=== PATIENT | female | born 1995 | race Caucasian/White ===

== ENCOUNTER 2024-06-06 06:35 | Emergency (ER) | payer OTHER ==
[2024-06-06 06:40] VITALS: BP 125/78; PULSE 80; TEMP 97.8
--- NOTE | 2024-06-06 06:53 | ED ---
Extremity Problem HPI - General Chief complaint: Extremity Problem,Nontraumatic Stated complaint: Left shoulder pain Time Seen by Provider: 06/06/24 06:42 Source: patient, RN notes reviewed Mode of arrival: ambulatory Limitations: no limitations - History of Present Illness Initial comments: This is a 28-year-old female who presents to the emergency department for left shoulder pain. States that it started a week ago. Denies any injuries. She went to urgent care a few days ago and was given a steroid shot. States that it wore off quickly and the pain then returned. She is taking Tylenol without any relief. She is having difficulty sleeping and moving the arm due to the pain. The pain is along the very front of the left shoulder and begins to radiate down the arm as well. MD Complaint: extremity pain - Related Data Previous Rx's Medication Instructions Recorded Ketorolac [Toradol] 10 mg PO Q6HR PRN #15 tab 06/06/24 methocarbamoL [Robaxin-750] 1,500 mg PO TID PRN #30 tab 06/06/24 Allergies Allergy/AdvReac Type Severity Reaction Status Date / Time No Known Allergies Allergy Verified 06/06/24 06:40 Review of Systems ROS Statement: Those systems with pertinent positive or pertinent negative responses have been documented in the HPI. ROS Other: All systems not noted in ROS Statement are negative. Past Medical History Past Medical History: No Reported History History of Any Multi-Drug Resistant Organisms: None Reported Past Surgical History: Appendectomy, Hernia Repair Additional Past Surgical History / Comment(s): Left knee meniscus repair Past Psychological History: Anxiety Smoking Status: Never smoker Past Alcohol Use History: Occasional Past Drug Use History: None Reported General Exam Limitations: no limitations General appearance: alert, in no apparent distress Head exam: Present: atraumatic, normocephalic, normal inspection Respiratory exam: Present: normal lung sounds bilaterally. Absent: respiratory distress, wheezes, rales, rhonchi, stridor Cardiovascular Exam: Present: regular rate, normal rhythm, normal heart sounds. Absent: systolic murmur, diastolic murmur, rubs, gallop, clicks Extremities exam: Present: other (Tenderness to palpation over the front of the left shoulder. Range of motion limited by pain. 2+ radial pulses.) Neurological exam: Present: alert, oriented X3, CN II-XII intact Psychiatric exam: Present: normal affect, normal mood Skin exam: Present: warm, dry, intact, normal color. Absent: rash Course Vital Signs 06/06/24 06/06/24 06:37 08:26 Temperature 97.8 F 97.8 F Pulse Rate 80 80 Respiratory 18 130 H Rate Blood Pressure 125/78 125/78 O2 Sat by Pulse 98 86 L Oximetry Medical Decision Making - Medical Decision Making This is a 28 year old female who presents to the emergency department for left shoulder pain. Was pt. sent in by a medical professional or institution? @ -No Did you speak to anyone other than the patient for history? @ -No Did you review nursing and triage notes? @ -Yes, and I agree, it is accurate with regards to the patient's symptoms. Were old charts reviewed? @ -No Differential Diagnosis? @ -Differential Musculoskeletal: Muscular strain, contusion, ligament sprain, fracture, arthritis, septic arthritis, bursitis, cellulitis, muscle spasm, nerve compression, DVT, arterial occlusion, herpes zoster, electrolyte abnormality, tumor.... This is not meant to be in all inclusive list EKG interpreted by me (3pts min.)? @ -Not obtained X-rays interpreted by me (1pt min.)? @ -X-ray of the left shoulder obtained. My interpretation identifies no acute fractures. CT interpreted by me (1pt min.)? @ -Not obtained U/S interpreted by me (1pt. min.)? @ -Not obtained What testing was considered but not performed? (CT, X-rays, U/S, labs)? Why? @ -None What meds were considered but not given? Why? @ -None Did you discuss the management of the patient with other professionals? @ -No Did you reconcile home meds? @ -No Was smoking cessation discussed for >3mins.? @ -No Was critical care preformed (if so, how long)? @ -No Were there social determinants of health that impacted care today? How? (Homelessness, low income, unemployed, alcoholism, drug addiction, transportation, low edu. Level, literacy, decrease access to med. care, prison, rehab)? @ -No Was there de-escalation of care discussed even if they declined? (Discuss DNR or withdrawal of care, Hospice)? @ -No What co-morbidities impacted this encounter? (DM, HTN, Smoking, COPD, CAD, Cancer, CVA, Hep., AIDS, mental health diagnosis, sleep apnea, morbid obesity)? @ -None Was patient admitted / discharged? @ -Discharged. X-ray of the left shoulder obtained revealing no acute process. Discussed the possibility of multiple problems including a muscular problem, a bursitis, or rotator cuff problem. Pain was managed in the emergency department. She was given information for follow-up with orthopedics for further evaluation. Prescription for Toradol and Robaxin provided for further symptomatic management. Patient discharged home in stable condition. Case discussed with ED attending Dr. Huffman. Return precautions reviewed in depth, the patient is instructed to return to the emergency department with any new, worsening, or concerning symptoms. Patient verbalized understanding. Undiagnosed new problem with uncertain prognosis? @ -None Drug Therapy requiring intensive monitoring for toxicity (Heparin, Nitro, Insulin, Cardizem)? @ -None Were any procedures done? @ -None Diagnosis/symptom? @ -Left shoulder pain Acute, or Chronic, or Acute on Chronic? @ -Acute Uncomplicated (without systemic symptoms) or Complicated (systemic symptoms)? @ -Uncomplicated Side effects of treatment? @ -None Exacerbation, Progression, or Severe Exacerbation] @ -Not applicable Poses a threat to life or bodily function? @ -May limit use of left upper extremity for the meantime. - Radiology Data Radiology results: report reviewed, image reviewed Disposition Clinical Impression: Left shoulder pain Disposition: HOME SELF-CARE Instructions (If sedation given, give patient instructions): Shoulder Pain (ED) Additional Instructions: Return to the emergency department with any new, worsening, or concerning symptoms. Take the Toradol with Tylenol as needed for pain relief. If you choose to take the Toradol, do not take any other anti-inflammatories such as ibuprofen, take one or the other. Take the Robaxin as 1 to 2 tablets up to 3-4 times daily. Be aware that this may make you drowsy. You can contact the orthopedic offices listed below for follow-up appointment and further evaluation of ongoing symptoms. Follow up with your primary care provider in 1-2 days. Prescriptions: methocarbamoL [Robaxin-750] 1,500 mg PO TID PRN #30 tab PRN Reason: Pain Ketorolac [Toradol] 10 mg PO Q6HR PRN #15 tab PRN Reason: Pain Is patient prescribed a controlled substance at d/c from ED?: No Referrals: Twila Pratt NPC [Primary Care Provider] - 1-2 days Eduar Mortensen MD [Medical Doctor] - 1-2 days Branden Duran MD [STAFF PHYSICIAN] - 1-2 days Time of Disposition: 08:00
[2024-06-06] MEDS: DEXAMETHASONE SOD PHOSPHATE 10 MG/ML 1 ML VIAL IVP STA (06:56)
[2024-06-06] MEDS: KETOROLAC 15 MG/ML 1 ML VIAL IVP STA (06:56)
[2024-06-06] MEDS: ORPHENADRINE 30 MG/ML 2 ML VIAL IVP STA (06:56)
[2024-06-06] MEDS: KETOROLAC 15 MG/ML 1 ML VIAL IM STA (07:08)
[2024-06-06] MEDS: ORPHENADRINE 30 MG/ML 2 ML VIAL IM STA (07:09)
[2024-06-06] MEDS: DEXAMETHASONE SOD PHOSPHATE 10 MG/ML 1 ML VIAL IM STA (07:09)
--- NOTE | 2024-06-06 07:15 | XR ---
Left shoulder. HISTORY: Pain without trauma COMPARISON: None TECHNIQUE: 3 views left shoulder were obtained. FINDINGS: There is no fracture, dislocation, intraosseous, intra-articular soft tissue abnormality. IMPRESSION: No significant abnormality seen. [facility], , 06/06/2024 7:13 AM
[2024-06-06] MEDS: ACET/COD 300 MG/30 MG STARTER PACK 6 TAB BTL PO STA (08:16)
[2024-06-06] MEDS: MORPHINE SULFATE 4 MG/ML SYRINGE IM STA (08:17)
[2024-06-06 08:29] VITALS: RESP 130
== END 2024-06-06 08:45 | disposition home or self-care (01) ==
LOC: EC 06:35
DX: M25.512 Pain in left shoulder (principal)
CPT/HCPCS: 96372; 99283